=== PATIENT | female | born 1935 | race Caucasian/White ===

== ENCOUNTER 2022-12-20 07:43 | Day surgery (SDC) | payer MEDICARE, SELFPAY ==
[2022-12-16 14:24] VITALS: BMI 21.4
[2022-12-20] VITALS (9 sets, daily range): BP systolic 131–176; BP diastolic 57–82; PULSE 63–86; RESP 16–18; TEMP 36.2–36.8; O2SAT 95–100
== END 2022-12-20 10:01 | disposition home or self-care (01) ==
PROVIDERS: PCP Family Medicine; Visit Provider Ophthalmology
DX: H25.813 Combined forms of age-related cataract, bilateral (principal); F17.210 Nicotine dependence, cigarettes, uncomplicated
CPT/HCPCS: 66982; V2632

== ENCOUNTER 2023-01-17 09:02 | Day surgery (SDC) | payer MEDICARE, SELFPAY ==
[2023-01-11 13:05] VITALS: BMI 21.6
[2023-01-17] VITALS (8 sets, daily range): BP systolic 134–160; BP diastolic 59–73; PULSE 64–79; RESP 16–18; TEMP 36.2–36.6; O2SAT 95–100
== END 2023-01-17 11:19 | disposition home or self-care (01) ==
PROVIDERS: PCP Family Medicine; Visit Provider Ophthalmology
DX: H25.811 Combined forms of age-related cataract, right eye (principal)
CPT/HCPCS: 66984; V2632